=== PATIENT | male | born 1960 | race Caucasian/White ===

== ENCOUNTER 2017-10-18 12:55 | Inpatient (IN) | payer MEDICAID, OTHER ==
[2017-10-18] MEDS ORDERED: NICOTINE POLACRILEX 2 MG GUM B PRN (22:21)
[2017-10-18] MEDS ORDERED: MAG HYDROX/AL HYDROX/SIMETH 30 ML UDCUP PO PRN (22:21)
[2017-10-18] MEDS ORDERED: LORazepam 0.5 MG TAB PO PRN (22:21)
[2017-10-18] MEDS ORDERED: OLANZapine DISINTEGR 10 MG TAB PO PRN (22:21)
[2017-10-18] MEDS ORDERED: MAGNESIUM HYDROXIDE 30 ML UDCUP PO PRN (22:21)
[2017-10-18] MEDS ORDERED: ACETAMINOPHEN 325 MG TAB PO PRN (22:21)
--- NOTE | 2017-10-19 09:31 | BAPA ---
[f rep st] ADMISSION PSYCHIATRIC ASSESSMENT DATE OF SERVICE: 10/18/2017 IDENTIFICATION: This is a 56-year-old single white male, who lives with his mother and [place], [place]. He is on Social Security Disability for mental illness and medical problems. CHIEF COMPLAINT: "I feel excellent." "I see them outside. They are going to come into my house and kill me." HISTORY OF PRESENT ILLNESS: The patient is a poor historian. He admits to using methamphetamines and getting agitated. He reports being stalked and harassed by people from [place] that he used to use drugs with. He denies actually seeing them in his house or outside of his house, but reports there are multiple different people that are planning on killing him and killing his mother. He reports insomnia and agitation, but admits to using methamphetamines during the past 4 weeks. Apparently, his mother called the police, as he was threatening to kill himself and kill her and reporting severe paranoia. He was taken by police and paramedics to [facility]. There, he was agitated, irritable, and making homicidal and suicidal threats, as well as describing auditory and visual hallucinations and paranoid delusions, and was responding to internal stimuli and extremely disorganized. There, he received Zyprexa 10 mg IM and 5 mg IM at different points in time. The patient had a urine drug screen positive for amphetamines. He was held in the emergency room for 48 hours, but continued to have paranoia and agitation, and then was transferred over to the inpatient unit here at [facility] on an M-1 hold. The patient reports the last time he was sober from amphetamines for a whole month that he had a stable mood , normal sleep, and was not agitated, paranoid or having hallucinations. He denies nightmares or flashbacks of past trauma. He denies any major stressors in his life. PAST PSYCHIATRIC HISTORY: The patient reports 1 psychiatric hospitalization at [facility] in [place] in 1975. He reports that this was due to an overdose of meclizine. He denies any other suicide attempts. The patient has extensive legal history. He reports he was in halfway for 7 years in [place] , and then in halfway for 10 years in [place] for multiple arrests including theft, fraud, assault, and 'misdemeanor sexual assault.' He denies currently being on probation or parole. The patient reports a past history of alcoholism with recurrent alcohol use and multiple alcohol-related problems, but has not drank alcohol in several years. He reports abusing methamphetamines for the past month. The patient reports in the past being prescribed Effexor and amitriptyline for depression and insomnia but hasn't taken these medications in the past month. Per notes, patient has received past treatment from [facility]. Upon further questioning, reports past use of Seroquel and Abilify 'they made me real tired and didn't help me with anything.' ALLERGIES: He is allergic to penicillin and ampicillin. MEDICAL HISTORY: He reports a history of surgery on his left knee. 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 He has a history of possible ulcerative colitis in the past. He had 1 concussion with brief loss of consciousness, lasting a few seconds, but did not require hospitalization. MEDICATIONS: He reports he has not been taking venlafaxine or amitriptyline that have previously been prescribed to him for over a month. His medication list also includes indomethacin p.r.n. for arthritis, as well as prednisolone eye drops and ofloxacin eyedrops. The medication reconciliation by the pharmacist is pending. SOCIAL HISTORY: He reports he was raised by his mother and his stepfather. He denies childhood abuse or neglect. He dropped out of 9th grade and later got a GED. He has never been in the . Has never been . He has 1 adult daughter, whom he has no contact with. He receives Social Security Disability benefits for the past year for pain and weakness in his left leg, as well as mental illness of unknown type and has been living with his mother. 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 FAMILY HISTORY: He reports his mother is alive and well without mental illness , medical problems, or substance abuse. He denies any known family history of mental illness or suicide. VITAL SIGNS: This morning, blood pressure 119/68, pulse 85, respiratory rate 16 , pulse ox 94% on room air. LABS: In the [facility], he had a urine tox screen positive for amphetamines. His white blood cell count was 6.6, hemoglobin 15.1, platelet count 233. BMP, labs, and LFTs are illegible in the paperwork from [facility]. The patient is 162 cm tall, 75.2 kg with a BMI of 28.5. MENTAL STATUS EXAM: He is alert white male who is overweight. He ambulates slowly with a limp. He has no tremors, but appears to be limping. He has fair eye contact. He is wearing glasses. He is psychomotor agitated. His speech is loud, regular rate and rhythm, tangential at times. His thoughts are organized, but tangential at times. He has paranoid ideas of reference about past people that he did drugs with in [place] harassing him and his mother. He denies any thoughts to hurt himself or others. He has limited memory, poor insight and impaired judgment due to paranoia. 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 Antisocial personality disorder. History of unspecified depressive disorder. History of insomnia. Arthritis, history of left knee surgery, history of left cornea transplant The overall assessment is the patient currently has paranoid ideas of reference and appears tangential and irritable at times after abusing methamphetamines for the past month. The patient was sober in the [facility] for over 48 hours and continued to have severe symptoms and was admitted to the inpatient unit on an M1 hold. The patient reportedly made threats to kill himself and to kill his mother. His mother reported this to the police prior to the patient being taken to the emergency department. The patient currently denies thoughts to hurt himself or others, but appears somewhat disorganized and paranoid. PLAN: 1. The patient is on an M1 hold from the emergency department. This expires later this morning. We will file a short-term certification to monitor the patient's mood stability and paranoia and to further assess whether he is a danger to himself or others, and to further assess whether or not he is gravely disabled from a psychotic episode. 2. The patient's mother reported to police that he had made threats to harm her. The patient currently does not want his mother involved with his care but denies any thoughts of hurting her. The patient reports that he will use his Social Security Disability benefits to get a hotel room after discharge and does not want to return to live with her. Will attempt in the future to get a release of information to contact the patient's mother if patient willing in the future. 3. The patient previously had outpatient treatment at [facility]. Will try to get the release of information to get collateral information from that program. 4. We will order Zyprexa 5 mg by mouth at bedtime for stimulant-related psychotic disorder and bipolar disorder symptoms. I discussed the risk of tardive dyskinesia, sedation, extrapyramidal side effects, neuroleptic malignant syndrome, weight gain, diabetes, hyperlipidemia with this medication. We will also offer 10 mg p.r.n. for severe agitation on the unit as well as lorazepam 1 mg q.4 hours p.r.n. severe anxiety. 5. Due to the patient's history of multiple arrests for violent crimes, will order assault precautions and inappropriate sexual behavior precautions. 6. The patient's history is consistent with a diagnosis of antisocial personality disorder, which is a chronic risk factor for violence and suicide. This is unlikely to change with psychiatric hospitalization. 7. Will order naproxen 220 mg b.i.d. p.r.n. for arthritis pain as the patient has a history of arthritis, as well as a left knee surgery in the past. 8. The patient has a history of corneal transplant in his left eye. Asked the pharmacist to do a medication reconciliation to order the appropriate eye drops for his left eye. 9. We will not restart Effexor, amitriptyline at this time as the patient may have bipolar symptoms and does not appear to have severe depression at this time. 10. Ordered a TSH, comprehensive metabolic panel, lipid panel, and hemoglobin A1c for tomorrow morning. /[id number]/MODL MTDD
[2017-10-19] MEDS: NAPROXEN SODIUM 220 MG TAB PO PRN ×2 (09:33→21:00)
[2017-10-19] MEDS: prednisoLONE ACET 1% 5 ML OPHT.BTL LEFTEYE SCH (12:19)
[2017-10-19] MEDS: OFLOXACIN 0.3% 5ML OPHT DROPS LEFTEYE SCH ×2 (12:38→21:00)
--- NOTE | 2017-10-19 12:53 | SOAPPROG ---
SOAP Progress Note Assessment/Plan: Assessment: Met with patient this afternoon after completing initial psychiatric evaluation. Patient reports while in [place] residential system, he was diagnosed with ' Bipolar Disorder, Paranoid Schizophrenia, ADHD' and reports benefit from Olanzapine and Fluoxetine. He reports during that time no benefit from Abilify trial and severe side effects from Seroquel. Reports more recently at [facility] he was prescribed Effexor/Venlafaxine 'made me sick to my stomach, haven't been taking it' and HS/PM Amitriptyline 'helps me fall asleep a little bit but that is it.' Patient agreeable to trial of scheduled Olanzapine for substance induced psychotic disorder (paranoia, recent hallucinations) with bipolar disorder symptoms (insomnia, agitation, irritability, severe mood swings). Patient reports he called his mother and notified her that he was in the hospital at [facility]. He reports she is 75yo and drives but is unlikely to drive to [place]. Plan: 10/19/17 12:50 Objective: Vital Signs Temp Pulse Resp BP Pulse Ox 36.7 C 85 16 119/68 94 10/18/17 19:38 10/19/17 06:00 10/19/17 06:00 10/19/17 06:00 10/19/17 06:00 - Pending Discharge Pending Discharge Within 24 Hours: No Pending Discharge Within 48 Hours: No ICD10 Worksheet Patient Problems: Problems Problem Status Onset Bipolar disorder, unspecified Acute Antisocial personality disorder in adult Acute Suicidal ideation Acute Homicidal ideation Acute Stimulant abuse Acute Other stimulant use, unspecified with stimulant-induced psychotic disorder with delusions Acute Osteoarthritis Acute Cornea transplant recipient Acute
[2017-10-19] MEDS ORDERED: OLANZapine DISINTEGR 5 MG TAB PO SCH (21:00)
--- NOTE | 2017-10-19 22:04 | BCON ---
[f rep st] BEHAVIORAL HEALTH CONSULTATION INTERNAL MEDICINE CONSULTATION DATE OF CONSULTATION: 10/19/2017 REFERRING PHYSICIAN: Luke Elizabeth MD REASON FOR REFERRAL: Medical clearance for inpatient behavioral health stay. HISTORY OF PRESENT ILLNESS: This patient was transferred to [facility] inpatient rehabilitation from [facility]. He had been taken there by police due to making threatening statements to his mother. He was on an M1 hold. He was evaluated by the mental health team and admitted for further psychiatric care. Currently, he complains of left knee pain. He otherwise is without acute complaints. PAST MEDICAL HISTORY: 1. Mental health issues and polysubstance abuse. 2. Ulcerative colitis. 3. Knee injuries. 4. Left corneal injury. PAST SURGICAL HISTORY: 1. He has had knee surgery on the left and reports cartilage and ligament issues that were repaired. 2. He has had corneal replacement. MEDICATIONS: He was prescribed amitriptyline and venlafaxine, but was not taking these. He uses prednisolone and ofloxacin eye drops on the left eye. Reports using indomethacin for his left knee pain. He denies using any specific medications for the ulcerative colitis. ALLERGIES: Listed to penicillins. SOCIAL HISTORY: He lives with his mother. He has disability income. He is a smoker and reports he has tried to quit 3 times and is trying to quit right now. He mostly has been unemployed and spent some time in [employer]. He has worked as a chef kitchen manager. He has been using methamphetamine regularly for approximately the past month. FAMILY HISTORY: Noncontributory. He denies any history of cardiovascular disease or stroke in his family. REVIEW OF SYSTEMS: He reports a good appetite and recent weight gain. He reports left knee pain. He reports blurred vision in the left eye. He denies nausea, vomiting, constipation, diarrhea. He denies dysuria or urinary frequency. Otherwise, a 10-point review of systems is negative. PHYSICAL EXAM: VITAL SIGNS: Blood pressure is 119/68, heart rate is 85, respiratory rate is 16, oxygen saturation is 94% on room air, temperature is 36.7 degrees centigrade. His weight is 75.3 kg for a body mass index of 28.5. GENERAL: This is an overweight man lying in bed, wearing street clothes, cooperative and in no acute distress. HEENT: Extraocular movements are intact. Pupils are equal, round, reactive to light. There is notable opacity to the left cornea over the inferior lateral aspect of the pupil. Mucous membranes are moist. Dentition is in fair condition. He has an uncrowded airway, Mallampati class 2. There are no oropharyngeal mucosal lesions noted. NECK: Supple. HEART: There is a regular rate and rhythm with no murmurs, rubs , or gallops. Heart sounds are somewhat distant. LUNGS: Clear to auscultation bilaterally, but he takes short breaths. ABDOMEN: Benign. EXTREMITIES: There is no cyanosis, clubbing, or edema. Radial and dorsalis pedis pulses are 2+ bilaterally. NEUROLOGIC: He is alert and oriented x3. Cranial nerves 2-12 are grossly intact. There is no focal weakness, and sensation is intact to light touch. LABORATORY STUDIES: From [facility]: Urine tox screen was positive for amphetamines. CBC was overall within normal limits. Other labs including basic metabolic profile and LFTs were not legible in the paperwork. ASSESSMENT/RECOMMENDATIONS: 1. Mental health issues, pending further evaluation and management per Psychiatry and the mental health team. 2. Tobacco dependence syndrome. Advised smoking cessation. 3. History of methamphetamine abuse. He might benefit from specific substance abuse counseling. 4. Overweight status with subjective weight gain. 5. Knee pain with history of left knee surgeries. He has a prescription for naproxen and this is appropriate. He denies any history of peptic ulcer disease. 6. Ulcerative colitis. He reports that he has an annual colonoscopy. He denies any specific treatment for his episodic flares. He has no diarrhea or abdominal pain at present. 7. Cardiac risk in an overweight smoker. Depending on his lipid panel, he may have a 10-year cardiovascular risk of greater than 10%, in which case initiation of a statin would be indicated. Agree with determination of lipid panel with labs tomorrow. 8. Status post corneal transplant with blurred vision and opacified cornea. Recommend ophthalmology follow-up after discharge. I see no medical contraindications to this patient's continued stay in the inpatient behavioral health unit or to any psychiatric medications or procedures. Thank you very much for including me in the care of this patient. Please do not hesitate to contact me or the hospitalist service should there be need for further medical evaluation. I will follow along regarding the results of the lab studies that were ordered for tomorrow morning. /[id number]/MODL MTDD
[2017-10-20] MEDS: NAPROXEN SODIUM 220 MG TAB PO PRN (09:10)
[2017-10-20] MEDS: prednisoLONE ACET 1% 5 ML OPHT.BTL LEFTEYE SCH (09:11)
--- NOTE | 2017-10-20 10:26 | SOAPPROG ---
SOAP Progress Note Assessment/Plan: Assessment: Stimulant Related Psychotic Disorder Unspecified Bipolar Disorder Stimulant Use Disorder severe Antisocial PD by history Elevated Triglycerides Left Corneal Transplant - on prednisolone and ofloxacin eye drops Patient is mostly calm but has residual paranoia and brief agitation. Denies dangerous thoughts/plans. Limited/poor insight regarding stimulant related psychotic episode. Plan: Short Term Certification Discussed motivation for sobriety and [facility] groups after discharge Increase Olanzapine 7.5mg PO QHS, discussed risk of EPS, TD, NMS, metabolic syndrome Discussed low fat, low carbohydrate diet; start fish oil daily for elevated Triglycerides Schedule Naproxen BID for arthritis Discussed psychiatry follow up at [facility] after discharge Discussed PCP follow up at [facility] for arthritis, corneal transplant, re-screen for diabetes and hyperlipidemia in one month 10/20/17 10:33 Subjective: CC: "Better" Patient reports sleeping well. Denies agitation or irritability this AM. Reports one year ago seeing a car pass by his house and believed it was a drug dealer from [place] saying 'your a snitch.' Denies seeing or hearing drug dealers currently. Reports continued fear that past drug dealers from [place] are harassing him and his mother. Denies AH. Denies violent or suicidal thoughts. Endorses severe mood swings 'yeah I know I'm bipolar' including episodes of hyperactivity, decreased need for sleep, and distractibility alternating with severe sadness and hopelessness. Reports benefit from Olanzapine while in the [place] [facility] system. Reports tolerating Olanzapine on unit without excessive sedation or slowing. Reports talking on phone with mother and she will allow him to return home. 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 Denies any plans to hurt himself or his mother. Agrees to outpatient follow up at [facility] after discharge. Objective: Vital Signs Temp Pulse Resp BP Pulse Ox 36.7 C 85 16 119/68 94 10/18/17 19:38 10/19/17 06:00 10/19/17 06:00 10/19/17 06:00 10/19/17 06:00 Laboratory Results 10/20/17 06:15 Alert WM overweight. Mild agitation. Speech loud, RRR. Mood 'better' affect euthymic, euphoric at times. Thoughts organized, tangential at times. Denies SI or HI or AH. Reports some paranoia that he is being stalked by past drug dealers. Insight limited, judgment questionable. Staff report patient slept 9 hours. Was loud and rambling on the phone last night but otherwise calm and cooperative with groups and medication. Triglycerides 234, other labs WNL. - Time Spent With Patient Time Spent With Patient: 30 minutes - Pending Discharge Pending Discharge Within 24 Hours: No Pending Discharge Within 48 Hours: No ICD10 Worksheet Patient Problems: Problems Problem Status Onset Antisocial personality disorder in adult Acute Bipolar disorder, unspecified Acute Cornea transplant recipient Acute Homicidal ideation Acute Osteoarthritis Acute Other stimulant use, unspecified with stimulant-induced psychotic disorder with delusions Acute Stimulant abuse Acute Suicidal ideation Acute
[2017-10-20] MEDS: NICOTINE 7 MG/24 HR PATCH TD SCH (13:29)
[2017-10-20] MEDS: OFLOXACIN 0.3% 5ML OPHT DROPS LEFTEYE SCH ×3 (13:31→21:04)
[2017-10-20] MEDS ORDERED: OLANZapine 5 MG TAB PO SCH (21:00)
[2017-10-20] MEDS: NAPROXEN SODIUM 220 MG TAB PO SCH (21:05)
[2017-10-21 06:48] VITALS: BP 126/77; PULSE 88; RESP 14; TEMP 97.6; O2SAT 96
[2017-10-21] MEDS ORDERED: OMEGA-3 FATTY ACIDS 1,000 MG CAP PO SCH (09:00)
[2017-10-21] MEDS: NAPROXEN SODIUM 220 MG TAB PO SCH (10:04)
--- NOTE | 2017-10-21 10:11 | BDS ---
[f rep st] BEHAVIORAL HEALTH DISCHARGE SUMMARY ADMITTING DIAGNOSES: Stimulant related psychotic disorder; stimulant related bipolar disorder; stimulant use disorder, severe; antisocial personality disorder; arthritis; history of left knee surgery; history of left cornea transplant. IDENTIFICATION: This is a 56-year-old single white male who lives with his mother in [place], [place]. He is on Social Security Disability benefits for mental illness and severe arthritis in his knees. He is in outpatient treatment at [facility]. BRIEF PSYCHIATRIC HISTORY: The patient reports 1 psychiatric hospitalization at [facility] in [place] in 1975 following a meclizine overdose. He denies other suicide attempts. He was in long-term in [place] for about 7 years. There, he was diagnosed with bipolar disorder, schizophrenia, and attention deficit hyperactivity disorder. He had multiple psychiatric medication trials there but felt most stable on olanzapine. The patient was recently in treatment at [facility] as an outpatient, was prescribed a low dose of Effexor 75 mg a day and amitriptyline at night for depression and insomnia. The patient reported he had been noncompliant with these medications for at least a month prior to admission. The patient has an extensive history of substance abuse. He reports in the past being addicted to stimulants such as methamphetamine. He also has a history of alcoholism with recurrent alcohol use and alcohol-related problems. He reports he has not drank alcohol in several years. He reports he was using methamphetamine several days a week for the past month prior to admission. LEGAL HISTORY: he reports past incarcerations for multiple arrests for forgery , theft, simple assault, and 'misdemeanor' sexual assault. He denied being on probation or parole and reported that he did not have to register as a sex offender. BRIEF MEDICAL HISTORY: He has a history of a left corneal transplant. He also has a history of left knee surgery and 1 concussion in the past. ALLERGIES: He is allergic to penicillin and ampicillin. REASON FOR ADMISSION: Please see psychiatric evaluation dated October 19, 2017. The patient had been living with his mother and noncompliant with outpatient mental health treatment and psychiatric medications, and he had been abusing methamphetamine for about a month. He developed severe paranoia that he was being stalked by drug dealers from [place] and being harassed. He also had brief visual and auditory hallucinations, disorganized thinking, internal stimuli. He also made brief statements about wanting to be violent toward his mother or harming himself. His mother called the police. He was taken by police and paramedics to [facility]. There, he was on an M1 hold and in the ER for over 48 hours for psychiatric stabilization. His urine drug screen there was positive for amphetamines. He had continued disorganization, agitation, and paranoia. He was then transferred to the inpatient psychiatric unit here at [facility] on an M1 hold on October 18 2017. INITIAL EXAM: He was alert white male, who is overweight. He was walking with a limp due to arthritis. He had glasses. He was psychomotor agitated. His speech was loud, regular rate and rhythm, rapid at times. His thoughts were organized but tangential at times. He denied further thoughts to hurt himself or others after being admitted to the unit. His affect was agitated and briefly euphoric at times, other times angry and irritable. He did report auditory and visual hallucinations prior to admission. He did report continued paranoid ideas of reference that past people he did drugs with were stalking him and harassing him and his mother. He denied suicidal or homicidal thoughts on the unit. He had limited memory, poor insight and questionable judgment. HOSPITAL COURSE: The patient was prescribed Zyprexa for stimulant related psychotic symptoms, particularly paranoia with paranoid ideas of reference and agitation. The patient appeared hypomanic on the unit as well, but was unclear if this was stimulant induced or not. The patient eventually gave a history of being in the [place] [facility] for about 7 years and being stabilized on olanzapine for bipolar disorder with psychotic features, and was agreeable to continue this medication on the unit and after discharge. The patient was given initially 5 mg at night and then 7.5 mg at night. The patient slept well, had an improvement in his symptoms. He had remission of his paranoia, remission of fear of himself and his mother being stalked. He consistently denied any thoughts to hurt himself or others on the unit. The patient had elevated triglycerides and was started on fish oil for this. He was continued on ofloxacin and prednisolone eye drops for his left cornea transplant. The patient was able to talk to his mother multiple times on the phone. She was agreeable to have him return to her home as long as he was sober from drugs and alcohol. The patient's outpatient team and services at [facility], including Dr. Jernigan, and his ed case manager were notified of the patient's admission. The patient was not interested in referrals to substance abuse recovery programs; he did not have private insurance or private funding to go to a residential substance use treatment program. The patient reported prior to discharge that he was hopeful for the future, did not want to harm himself or others, wanted to live for himself and his mother, wanted to get a part-time job and was agreeable to stay sober after discharge to avoid psychiatric decompensation and conflict with his mother. On the unit, the patient was calm, pleasant, cooperative, able to attend groups, eating well and sleeping well on the unit. The patient reported his strength is that he had a positive outlook on the future and he had a good sense of humor. He reported had Social Security Disability benefits to support him and a good relationship with his mother. ALCOHOL USE DISORDER SCREENING: The patient denied any recurrent use of alcohol. NICOTINE USE DISORDER SCREENING: The patient reported smoking cigarettes daily and was started on a nicotine patch. He was counseled about the dangers of smoking and the benefits of using a nicotine patch [id number] after discharge. ADVANCE DIRECTIVES,: Patient declined to have an advance directive. METABOLIC SCREENING: The patient was overweight. His laboratory values included a triglycerides of 234, which is elevated. The patient was counseled to have a low-fat diet and to take fish oil once a day and then to have a primary care doctor screen for hyperlipidemia in 1 month. The patient's hemoglobin A1c was 5.5, which is normal. HDL was 33, LDL was 55. OTHER LABS: There were no labs pending. He had a sodium 142, potassium 4.3, creatinine 0.8, glucose 83. Hemoglobin A1c 5.5, calcium 9.4, AST 19, ALT 28, alkaline phosphatase 49, albumin 3.5, TSH 0.9. Of note, the patient had a urine drug screen positive for amphetamines in the [facility]. PROCEDURES: None performed. CONSULTS: The patient was seen by the hospitalist on October 19, 2017, for baseline physical exam. DISCHARGE DIAGNOSES: Stimulant related psychotic disorder; unspecified bipolar disorder; stimulant use disorder, severe; history of antisocial personality disorder. DISCHARGE MEDICATIONS: Olanzapine 7.5 mg p.o. at bedtime; prednisolone eyedrops 1%, 1 drop to left eye daily for one month; ofloxacin 0.3% eye drop to the left eye 3 times a day for 1 month; [id number]: omega-3 fatty acids 1000 mg by mouth daily; NicoDerm patch [id number] 7 mg transdermal daily; naproxen 220 mg by mouth twice a day for arthritis. DISPOSITION: The patient is leaving the hospital independently and has RTD bus pass to return home. FOLLOWUP: The patient has psychiatric followup at [facility], phone #[phone]. He has medical care followup at [facility] and in [place], phone #[phone]. OTHER PATIENT'S DIRECTIONS: Include the following. The patient should have his primary care doctor re-evaluate his left cornea transplant and re-screen for diabetes and hyperlipidemia within 1 month. The patient's prescription for olanzapine was written as a bubble pack. The patient was counseled about the risks of olanzapine causing tardive dyskinesia, neuroleptic malignant syndrome, sedation, weight gain, diabetes, and hyperlipidemia. LEGAL STATUS: The patient was admitted on an M1 hold and placed on short-term certification. This will be terminated upon discharge so the patient will be receiving outpatient treatment on a voluntary basis. /[id number]/MODL MTDD
[2017-10-21] MEDS: prednisoLONE ACET 1% 5 ML OPHT.BTL LEFTEYE SCH (10:56)
[2017-10-21] MEDS: OFLOXACIN 0.3% 5ML OPHT DROPS LEFTEYE SCH (10:56)
[2017-10-21] MEDS: NICOTINE 7 MG/24 HR PATCH TD SCH (10:57)
== END 2017-10-21 10:50 | disposition home or self-care (01) | DRG 897 ==
LOC: BBEH 19:08
PROVIDERS: ADMIT Psychiatry & Neurology Psychiatry
DX: F15.159 Other stimulant abuse with stimulant-induced psychotic disorder, unspecified (principal); F15.14 Other stimulant abuse with stimulant-induced mood disorder; F15.182 Other stimulant abuse with stimulant-induced sleep disorder; M17.12 Unilateral primary osteoarthritis, left knee; Z91.5 Personal history of self-harm; Z94.7 Corneal transplant status